=== PATIENT | female | born 1970 | race Caucasian/White ===

== ENCOUNTER 2017-01-30 13:57 | Emergency (ER) | payer OTHER ==
--- NOTE | 2017-01-30 18:22 | RAD ---
LEFT KNEE FOUR VIEWS: Date: 01-30-17 FINDINGS: No acute fracture or joint effusion was seen. A tiny amount of bony spurring was seen associated wit h the patella. IMPRESSION: No acute findings. POS: HOME
--- NOTE | 2017-01-30 18:25 | RAD ---
LEFT FOOT THREE VIEWS: Date: 01-30-17 FINDINGS: No acute fracture or periosteal reaction was seen. A calcaneal spur was noted. Bony spurring is seen between the talus and other tarsal bones anteriorly. IMPRESSION: No acute findings. POS: HOME
== END 2017-01-30 14:50 | disposition home or self-care (01) ==
LOC: BURERS 13:57
DX: S83.92XA Sprain of unspecified site of left knee, initial encounter (principal); S76.912A Strain of unspecified muscles, fascia and tendons at thigh level, left thigh, initial encounter; F41.9 Anxiety disorder, unspecified; I10 Essential (primary) hypertension; F17.210 Nicotine dependence, cigarettes, uncomplicated; W01.0XXA Fall on same level from slipping, tripping and stumbling without subsequent striking against object, initial encounter; Y92.34 Swimming pool (public) as the place of occurrence of the external cause

== ENCOUNTER 2017-10-13 11:51 | Emergency (ER) | payer OTHER ==
--- NOTE | 2017-10-13 20:41 | RAD ---
RIGHT KNEE FOUR VIEWS: 10/13/17 A large joint effusion is present. The patella is subluxed laterally quite a bit. I cannot detect an actual fracture. The knee joint space is normal. IMPRESSION: Lateral patellar subluxation with significant joint fluid. ' Code T POS: HOME
== END 2017-10-13 13:05 | disposition home or self-care (01) ==
LOC: BURERS 11:51
DX: S83.91XA Sprain of unspecified site of right knee, initial encounter (principal); I10 Essential (primary) hypertension; M19.042 Primary osteoarthritis, left hand; M19.041 Primary osteoarthritis, right hand; F41.9 Anxiety disorder, unspecified; F17.210 Nicotine dependence, cigarettes, uncomplicated; Z79.52 Long term (current) use of systemic steroids; Z79.899 Other long term (current) drug therapy; W11.XXXA Fall on and from ladder, initial encounter

== ENCOUNTER 2018-02-02 11:01 | Emergency (ER) | payer OTHER ==
[2018-02-02] MEDS ORDERED: Ondansetron ODT 4 MG TAB ONE (11:22)
[2018-02-02 11:30] LABS: #Basophils 0.1 thou/uL (0.0-0.2); #Eosinphils 0.1 thou/uL (0.0-0.7); #Lymphocytes 2.6 thou/uL (1.20-3.40); #Monocytes 0.5 thou/uL (0.11-0.59); #Neutrophils 7.2 thou/uL (1.40-6.50); %Basophils 1.2 % (0.0-1.0); %Eosinophils 0.5 % (0.0-10.0); %Lymphocytes 24.5 % (21.0-51.0); %Monocytes 5.2 % (0.0-10.0); %Neutrophils 68.6 % (42.0-75.0); Hemoglobin 13.3 g/dL (12.0-16.0); Mean Corpuscular Hemoglobin 30.1 pg (27.0-31.0); Mean Corpuscular Volume 83.4 fL (78.0-98.0); Platelet Count 276 thou/uL (130-400); RBC Distribution Width 11.4 % (11.5-14.5); Red Blood Cell (RBC) Count 4.43 mill/uL (4.20-5.40); White Blood Cell (WBC) Count 10.4 thou/uL (4.8-10.8)
[2018-02-02 11:43] LABS: Clarity Clear (Clear); Leukocyte Negative (Negative); Specific Gravity, Urine 1.005 (1.005-1.030); pH, Urine 6.5 (5.0-9.0)
[2018-02-02 11:44] LABS: Bacteria/HPF None Seen HPF (None Seen); Bilirubin Negative (Negative); Blood, Urine Trace (Negative); Glucose, Urine (Dipstick) Negative (Negative); Nitrite Negative (Negative); Protein, Urine (Dipstick) Negative (Neg-Trace); RBC/HPF 0-3 HPF (0-3); Squamous Epithelial 0-3 HPF (0-3); Urobilinogen 0.2 mg/dL (0.2-1.0); WBC/HPF 0-3 HPF (0-3)
[2018-02-02 11:46] LABS: ALT (SGPT) 12 U/L (8-55); AST (SGOT) 10 U/L (5-34); Alkaline Phosphatase 94 U/L (40-150); Anion Gap 14 mmol/L (10-20); BUN (Urea Nitrogen) 9 mg/dL (7.0-18.7); Bilirubin, Total 0.3 mg/dL (0.2-1.2); Calc. Creatinine Clearance 0 mL/min (70-130); Calcium 9.3 mg/dL (7.8-10.44); Carbon Dioxide 28 mmol/L (22-29); Chloride 103 mmol/L (98-107); Estimated GFR-MDRD Greater than 90; Globulin 2.6 g/dL (2.4-3.5); Glucose 103 mg/dL (70-105); Potassium 3.9 mmol/L (3.5-5.1); Protein, Total 6.6 g/dL (6.0-8.3); Sodium 141 mmol/L (136-145)
== END 2018-02-02 12:09 | disposition home or self-care (01) ==
LOC: BURERS 11:01
DX: R11.0 Nausea (principal); I10 Essential (primary) hypertension; F41.9 Anxiety disorder, unspecified; M19.90 Unspecified osteoarthritis, unspecified site; F17.210 Nicotine dependence, cigarettes, uncomplicated; Z79.899 Other long term (current) drug therapy
CPT/HCPCS: 36415; 80053; 81003; 81015; 85025; 99283; Q0162

== ENCOUNTER 2018-05-21 15:28 | Emergency (ER) | payer OTHER | END 2018-05-21 15:43 | disposition home or self-care (01) | LOC: BURERS 15:28 | DX: L08.0 Pyoderma (principal); B95.8 Unspecified staphylococcus as the cause of diseases classified elsewhere; I10 Essential (primary) hypertension; M19.90 Unspecified osteoarthritis, unspecified site; F41.9 Anxiety disorder, unspecified; F17.210 Nicotine dependence, cigarettes, uncomplicated; Z79.899 Other long term (current) drug therapy | CPT/HCPCS: 99282 ==

== ENCOUNTER 2019-05-20 09:13 | Emergency (ER) | payer OTHER ==
[2019-05-20] MEDS ORDERED: Ketorolac Tromethamine 60 MG/2 ML VIAL ONE (10:18)
[2019-05-20] MEDS ORDERED: Cyclobenzaprine 10 MG TAB ONE (10:18)
--- NOTE | 2019-05-20 19:39 | RAD ---
RIGHT SHOULDER THREE VIEWS: Date: 05-20-19 FINDINGS: No fracture, dislocation, or AC joint widening was seen. There may have been an old injury to the dis dania clavicle but I do not see an acute fracture. IMPRESSION: No acute findings. POS: HOME
== END 2019-05-20 10:36 | disposition home or self-care (01) ==
LOC: BURERS 09:13
DX: S46.911A Strain of unspecified muscle, fascia and tendon at shoulder and upper arm level, right arm, initial encounter (principal); M43.6 Torticollis; I10 Essential (primary) hypertension; F41.9 Anxiety disorder, unspecified; F17.210 Nicotine dependence, cigarettes, uncomplicated; Z79.899 Other long term (current) drug therapy; W19.XXXA Unspecified fall, initial encounter
CPT/HCPCS: J1885